=== PATIENT | female | born 1960 | race Caucasian/White ===

== ENCOUNTER 2017-09-12 08:29 | Emergency (ER) | payer BC ==
--- NOTE | 2017-09-12 08:35 | XRAY ---
Indication: Cough. Laryngitis. History mini maze procedure 2014. Comparison: September 10, 2014. PA/lateral chest again hyperinflated and clear. Heart is not enlarged. New cardiac metallic clips from known surgery. Vascularity normal. Bony thorax intact. Impression: Nonacute hyperinflated chest.
[2017-09-12] MEDS ORDERED: Sodium Chloride 0.9% 1000 ML 1,000 ML ONE (08:51)
--- NOTE | 2017-09-12 08:53 | ERPHSYRPT ---
- History of Present Illness Time Seen by Provider: 09/12/17 08:48 Source: patient Exam Limitations: no limitations Physician History: 56-year-old white female with history of COPD coronary artery disease, atrial fibrillation with mini maze Arrives with complaint of a cough shortness of breath feels weak symptoms for a week. Patient was seen by Dr. Cabello 2 days ago given an injection placed on antibiotics (patient not sure what antibiotic she was on) Patient arrived at x-ray today and noticed to be a short of breath so brought to the emergency room. Patient denies pain denies fever states her cough is nonproductive no vomiting no diarrhea, Patient states she feels weak, Past medical history COPD, atrial fibrillation. Past surgical history includes hysterectomy mini maze for atrial fibrillation. Social history patient denies tobacco alcohol or illicit drug use (patient is a former smoker) Timing/Duration: week(s) (one week worse past 2 days) Modifying Factors: Improves With: nothing Associated Symptoms: shortness of breath, cough, malaise, weakness, No nausea, No vomiting, No abdominal pain, No heartburn, No diaphoresis, No chills, No chest pain, No fever, No headaches, No loss of appetite, No rash, No syncope, No seizure Allergies/Adverse Reactions: Antihistamines - Alkylamine Allergy (Verified 09/12/17 08:50) Home Medications: Aspirin 81 mg PO DAILY 06/22/16 [History] Docusate Sodium 100 mg [Colace 100 MG] 100 mg BID 09/12/17 [History] - Review of Systems Constitutional: Malaise, Weakness, No Chills, No Lethargy, No Night Sweats, No Weight Loss Eyes: No Symptoms, No Discharge, No Eye Pain, No Eye Redness, No Itchy, No Photophobia, No Tearing, No Vision Changes, No Double Vision, No Foreign Body Sensation Ears, Nose, & Throat: No Symptoms, No Ear Pain, No Ear Discharge, No Hearing Changes, No Tinnitus, No Nose Pain, No Nose Congestion, No Nose Discharge, No Sinus Drainage, No Epistaxis, No Mouth Pain, No Mouth Swelling, No Loose Teeth, No Throat Pain, No Throat Swelling, No Hoarse, No Painful Swallowing, No Snoring , No Stridor Respiratory: Cough, Dyspnea, No Cyanosis, No Stridor, No Wheezing Cardiac: No Chest Pain, No Edema, No Syncope Abdominal/Gastrointestinal: No Abdominal Pain, No Nausea, No Vomiting, No Diarrhea Genitourinary Symptoms: No Dysuria Musculoskeletal: No Back Pain, No Neck Pain Skin: No Rash Neurological: No Dizziness, No Focal Weakness, No Sensory Changes Psychological: No Symptoms Endocrine: No Symptoms All Other Systems: Reviewed and Negative - Past Medical History Pertinent Past Medical History: Yes Neurological History: No Pertinent History ENT History: No Pertinent History Cardiac History: Arrhythmia Respiratory History: No Pertinent History Endocrine Medical History: No Pertinent History Musculoskeletal History: No Pertinent History GI Medical History: No Pertinent History History: No Pertinent History Psycho-Social History: No Pertinent History Female Reproductive Disorders: No Pertinent History - Past Surgical History Past Surgical History: Yes Neuro Surgical History: No Pertinent History Cardiac: Other Respiratory: No Pertinent History Gastrointestinal: Appendectomy Genitourinary: No Pertinent History Musculoskeletal: No Pertinent History Female Surgical History: Tubal Ligation Other Surgical History: maze procedure for cardiac arrhthymia - Social History Smoking Status: Former smoker Exposure to second hand smoke: No Drug Use: none - Nursing Vital Signs Nursing Vital Signs: Initial Vital Signs Temperature 98.0 F 09/12/17 08:41 Pulse Rate 85 09/12/17 08:41 Respiratory Rate 18 09/12/17 08:41 Blood Pressure 103/76 09/12/17 08:41 O2 Sat by Pulse Oximetry 100 09/12/17 08:41 Pain Scale Pain Intensity 0 - Physical Exam General Appearance: mild distress, alert, thin (him him the floor for further her wi), other (well-developed white female alert oriented 3 and speaks in a quiet voice frequent cough no acute distress) Eye Exam: PERRL/EOMI, eyes nml inspection Ears, Nose, Throat Exam: normal ENT inspection, TMs normal, pharynx normal, moist mucous membranes Neck Exam: normal inspection, non-tender, supple, full range of motion Respiratory Exam: normal breath sounds, other (frequent cough with deep inspiration) Cardiovascular Exam: regular rate/rhythm, normal heart sounds, normal peripheral pulses Gastrointestinal/Abdomen Exam: soft, normal bowel sounds, No tenderness, No mass Back Exam: normal inspection, normal range of motion, No CVA tenderness, No vertebral tenderness Extremity Exam: normal inspection, normal range of motion, pelvis stable Neurologic Exam: alert, oriented x 3, cooperative, normal mood/affect, nml cerebellar function, nml station & gait, sensation nml, No motor deficits Skin Exam: normal color, warm, dry, No rash Lymphatic Exam: No adenopathy SpO2 Interpretation: normal (100%) Oxygen Delivery: Room Air - Course Nursing assessment & vital signs reviewed: Yes Rhythm Strip: Rate (73 bpm), Normal Sinus Rhythm - Radiology Exams Chest X-ray Interpretation: Discussed w/ radiologist, Other (non acute hyperinflated chest) Ordered Tests: Active Orders 24 hr Category Date Time Status Surface Water Technician STAT Care 09/12/17 08:42 Active EKG-ER Only STAT Care 09/12/17 08:41 Active IV Insertion STAT Care 09/12/17 08:41 Active Orthostatic Vital Signs STAT Care 09/12/17 09:49 Active CHEST 2 VIEWS (PA AND LAT) Routine Exams 09/12/17 08:07 Completed CBC W DIFF Stat Lab 09/12/17 08:53 Completed CMP Stat Lab 09/12/17 08:53 Completed Lactic Acid Stat Lab 09/12/17 09:25 Results VENOUS BLOOD GAS Stat Lab 09/12/17 09:25 Results Respiratory Nebulizer STAT RT 09/12/17 08:44 Active Medication Summary Generic Name Dose Route Start Last Admin Trade Name Freq PRN Reason Stop Dose Admin Sodium Chloride 1,000 mls @ 100 mls/hr 09/12/17 08:45 09/12/17 08:55 Sodium Chloride 0.9% 1000 Ml IV 10/12/17 08:44 100 mls/hr .Q10H FIFI Administration Discontinued Medications Generic Name Dose Route Start Last Admin Trade Name Freq PRN Reason Stop Dose Admin Albuterol/Ipratropium 3 ml 09/12/17 08:41 09/12/17 09:00 Duoneb 0.5-3 Mg/3 Ml Neb IH 09/12/17 08:42 3 ml STAT ONE Administration Albuterol/Ipratropium Confirm 09/12/17 09:00 Duoneb 0.5-3 Mg/3 Ml Neb Administered 09/12/17 09:01 Dose 3 ml IH .STK-MED ONE Lab/Rad Data: Laboratory Result Diagrams 09/12/17 08:53 09/12/17 08:53 Laboratory Results 01/25/18 01/25/18 01/25/18 Range/Units 09:25 08:53 08:53 WBC 4.5 (4.0-10.5) K/mm3 RBC 4.90 (4.1-5.4) M/mm3 Hgb 15.5 (12.0-16.0) gm/dl Hct 46.6 (35-47) % MCV 95.1 (78-100) fl MCH 31.6 (26-32) pg MCHC 33.3 (32-36) g/dl RDW 11.8 (11.5-14.0) % Plt Count 147 L (150-450) K/mm3 MPV 9.9 H (6-9.5) fl Gran % 60.7 (36.0-66.0) % Lymphocytes % 28.7 (24.0-44.0) % Monocytes % 10.2 (0.0-12.0) % Eosinophils % 0.2 (0.00-5.0) % Basophils % 0.2 (0.0-0.4) % Basophils # 0.01 (0-0.4) VBG pH 7.47 H (7.32-7.42) VBG pCO2 at Pat Temp 37 L (42-55) mm/Hg VBG pO2 at Pat Temp 35 (25-40) mm/Hg VBG HCO3 26.9 (22-28) meq/L VBG O2 Sat ([place]) 80.8 L (95-100) VBG Base Excess 3.3 H (-2.0-2.0) VBG Hemoglobin 14.9 VBG Carboxyhemoglobin 1.8 (0.0-6.9) % T HGB POC Potassium 3.6 (3.5-5.1) Sodium 139 (136-145) mEq/L Potassium 3.5 (3.5-5.1) mEq/L Chloride 101 (98-107) mEq/L Carbon Dioxide 27.0 (21-32) mEq/L Anion Gap 10.0 (5-15) MEQ/L BUN 8 L (9-20) mg/dL Creatinine 1.01 (0.55-1.30) mg/dl Estimated GFR > 60 ML/MIN Glucose 98 (70-110) MG/DL Lactic Acid 1.9 (0.4-2.0) Calcium 9.4 (8.5-10.1) mg/dL Total Bilirubin 0.60 (0.2-1.0) mg/dL AST 33 (15-37) U/L ALT 33 (12-78) U/L Alkaline Phosphatase 63 (46-116) U/L Serum Total Protein 8.2 (6.4-8.2) gm/dL Albumin 4.1 (3.4-5.0) g/dL - Progress Progress: improved Progress Note: 09/12/17 09:12 This is a 56-year-old white female with history of COPD, atrial fibrillation who has had a mini maze. She arrives with complaint of shortness of breath and feeling weak for a week worse past 2 days. She was seen by Dr. Cabello 2 days ago given an injection given antibiotics. She states she is having lots of coughing she states she is unable to use her Breva secondary to coughing Patient does not appear to be in acute distress she was noted to be short of breath at x-ray and brought to the emergency room. On arrival patient is alert oriented 3 she exhibits a moderate amount of coughing with attempts at deep breathing may be a few wheezes with coughing heart rate is regular. Heart is a sinus rhythm on the monitor 73 bpm patient refuses EKG. Labs including CBC CMP lactate venous gases have been ordered Chest x-ray was done prior to arrival chest x-ray hyperinflated chest no acute disease process noted IV normal saline has been ordered initially at 100 mils per hour this is been increased to a 1 L bolus after chest x-ray is noted. Patient has been given DuoNeb treatment. 09/12/17 09:44 Patient continues to refuse EKG. Monitor shows sinus rhythm 73 bpm patient is looking markedly better after 1 L of normal saline. Patient has inhaler at home she does not want a different one. Patient is on an antibiotic at home. Patient's labs are essentially normal lactate is 1.8. Chest x-ray no acute changes positive COPD. Patient does not want steroids. Will have nurses obtain orthostatic vital signs after normal saline has been infused. Plan to have patient continue her antibiotics prescribed by Dr. Cabello, use her inhalers as prescribed and follow-up with Dr. Cabello. 09/12/17 09:52 Patient's stable blood pressure stable good perfusion to all extremities lungs are clear chest x-ray remarkable for hyperinflation no acute disease process otherwise. Patient refuses EKG patient the with normal sinus rhythm on a monitor normal rate. Lactate within normal limits labs essentially normal. Patient will be discharged. 09/12/17 09:54 - Departure Time of Disposition: 09:47 Departure Disposition: Home Clinical Impression: Cough, Shortness of breath, weakness, Volume depletion COPD (chronic obstructive pulmonary disease) Qualifiers: COPD type: unspecified COPD Qualified Code(s): J44.9 - Chronic obstructive pulmonary disease, unspecified Condition: Fair Critical Care Time: No Referrals: DEB CABELLO [Primary Care Provider] - Instructions: Chronic Obstructive Pulmonary Disease, Exacerbation of COPD (DC) Additional Instructions: Return home. Plenty of fluids. Use your inhalers as prescribed by your family doctor. Take your antibiotics which were prescribed to use 2 days ago by your family doctor. Follow-up with your family doctor. Return for acute distress or for severe symptoms.
[2017-09-12] MEDS: Sodium Chloride 0.9% 1000 ML 1,000 ML IV SCH (08:55)
[2017-09-12] MEDS: DUONEB 0.5-3 MG/3 ml Neb IH ONE (09:00)
[2017-09-12] MEDS ORDERED: DUONEB 0.5-3 MG/3 ml Neb IH ONE (09:00)
[2017-09-12 09:01] LABS: BASOPHIL % 0.2 % (0.0-0.4); Basophil (Absolute #) 0.01 (0-0.4); Eosinophil % 0.2 % (0.00-5.0); Eosinophil (Absolute #) 0.01 (0-0.5); Granulocyte Absolute (ANC) 2.75 (1.4-6.9); Granulocytes % 60.7 % (36.0-66.0); Hematocrit 46.6 % (35-47); Hemoglobin 15.5 gm/dl (12.0-16.0); Lymphocytes % 28.7 % (24.0-44.0); Mean Cell Volume 95.1 fl (78-100); Mean Corpuscular Hemoglobin 31.6 pg (26-32); Mean Corpuscular Hgb Concent. 33.3 g/dl (32-36); Mean Platelet Volume 9.9 fl (6-9.5); Monocyte (Absolute #) 0.46 (0.0-1.3); Monocytes % 10.2 % (0.0-12.0); Platelet Count 147 K/mm3 (150-450); Red Cell Distribution Width 11.8 % (11.5-14.0); White Blood Count 4.5 K/mm3 (4.0-10.5)
[2017-09-12 09:22] LABS: ALBUMIN 4.1 g/dL (3.4-5.0); ALKALINE PHOSPHATASE 63 U/L (46-116); BLOOD UREA NITROGEN 8 mg/dL (9-20); Calcium 9.4 mg/dL (8.5-10.1); Creatinine 1 1.01 mg/dl (0.55-1.30); EST GLOMERULAR FILTRATION RATE > 60 ML/MIN; Glucose 98 MG/DL (70-110); SGOT/AST 33 U/L (15-37); SGPT/ALT 33 U/L (12-78); Total Protein 8.2 gm/dL (6.4-8.2)
[2017-09-12 09:32] LABS: Lactic Acid 1.9 (0.4-2.0); VBG BASE EXCESS 3.3 (-2.0-2.0); VBG CARBOXYHEMOGLOBIN 1.8 % T HGB (0.0-6.9); VBG HCO3- 26.9 meq/L (22-28); VBG HEMOGLOBIN 14.9; VBG O2 SATURATION 80.8 (95-100); VBG PCO2 37 mm/Hg (42-55); VBG PO2 35 mm/Hg (25-40); VBG POTASSIUM 3.6 (3.5-5.1); VBG pH 7.47 (7.32-7.42)
[2017-09-12 09:35] LABS: CHLORIDE 101 mEq/L (98-107); Potassium 3.5 mEq/L (3.5-5.1); SODIUM 139 mEq/L (136-145)
[2017-09-12 10:16] VITALS: BP 111/61; PULSE 73; O2SAT 100
== END 2017-09-12 10:20 | disposition home or self-care (01) ==
LOC: ED 08:29 → EDSTATUS 08:29 → ED 10:20
DX: R05 Cough (principal); R06.02 Shortness of breath; R53.1 Weakness; E86.9 Volume depletion, unspecified; J44.9 Chronic obstructive pulmonary disease, unspecified; I48.91 Unspecified atrial fibrillation; I25.10 Atherosclerotic heart disease of native coronary artery without angina pectoris
CPT/HCPCS: 36000; 36415; 71046; 80053; 82805; 83605; 85025; 93041; 94640; 96360; 99284; A9270-GY

== ENCOUNTER 2021-06-06 11:28 | Emergency (ER) | payer BC ==
[2021-06-06] MEDS ORDERED: DECADRON 10MG INJ. IV ONE (12:04)
[2021-06-06 12:10] LABS: BASOPHIL % 0.1 % (0.0-0.4); Basophil (Absolute #) 0.01 (0-0.4); Eosinophil % 0.7 % (0.00-5.0); Eosinophil (Absolute #) 0.05 (0-0.5); Hematocrit 45.8 % (35-47); Hemoglobin 15.1 gm/dl (12.0-16.0); Lymphocyte (Absolute #) 1.01 (1.0-4.6); Lymphocytes % 14.7 % (24.0-44.0); Mean Cell Volume 94.4 fl (78-100); Mean Corpuscular Hemoglobin 31.1 pg (26-32); Mean Platelet Volume 9.6 fl (7.5-11.0); Monocyte (Absolute #) 0.48 (0.0-1.3); Neutrophil % 77.5 % (36.0-66.0); Platelet Count 274 K/mm3 (150-450); Red Blood Count 4.85 M/mm3 (4.1-5.4); Red Cell Distribution Width 11.9 % (11.5-14.0); White Blood Count 6.9 K/mm3 (4.0-10.5)
[2021-06-06] MEDS ORDERED: DECADRON 10MG INJ. ONE (12:20)
--- NOTE | 2021-06-06 12:24 | XRAY ---
Indication: Short of breath. Positive Covid 19. Comparison: May 31, 2021. Portable chest demonstrates new bilateral hazy patchy airspace disease greatest in lower lungs. No consolidation/large effusion. Heart not enlarged again with cardiac metallic clip.
[2021-06-06 12:34] VITALS: BP 114/68; PULSE 80
[2021-06-06 12:35] LABS: ALBUMIN 4.1 g/dL (3.5-5.0); ALKALINE PHOSPHATASE 70 U/L (38-126); ANION GAP 13.5 MEQ/L (5-15); BLOOD UREA NITROGEN 10 mg/dL (7-17); CHLORIDE 99 mmol/L (98-107); Calcium 9.7 mg/dL (8.4-10.2); Carbon Dioxide 31 mmol/L (22-30); Creatinine 1 0.55 mg/dL (0.52-1.04); EST GLOMERULAR FILTRATION RATE > 60.0 ML/MIN; Glucose 92 mg/dL (74-106); MAGNESIUM 2.3 mg/dL (1.6-2.3); NT PRO BNP 434 pg/mL (0-900); Potassium 3.9 mmol/L (3.5-5.1); SGOT/AST 25 U/L (14-36); SGPT/ALT 17 U/L (0-35); SODIUM 139 mmol/L (137-145); Total Protein 7.6 g/dL (6.3-8.2)
[2021-06-06 13:04] VITALS: O2SAT 96
--- NOTE | 2021-06-06 13:10 | ERPHSYRPT ---
- History of Present Illness Time Seen by Provider: 06/06/21 12:03 Source: patient Exam Limitations: no limitations Patient Subjective Stated Complaint: Patient c/o weakness, non-productive cough, SOB. States she was tested for COVID-19 on 05/31/2021 on the [facility] and received her results today. She states she is Positive for COVID-19. Patient indicates that the health department instructed her to come to the ER for evaluation and treatment. Triage Nursing Assessment: Patient ambulated into ED with a slow, steady gait. Patient is alert and oriented and able to answer questions appropriately. No SOB noted. Resps are non-labored. Lung bases are diminished. An occassional, non- productive cough is noted. 02 sats ranging from 99-100% on room air during assessment. Apical heart rate is normal. Skin warm, dry, normal skin tone. Physician History: 60 years old female with a history of COPD presented in ER with 8-day history of cough congestion, body aches, subjective feeling of fever and chills and some shortness of breath and chest pain at times. Patient has been seen outpatient, received Levaquin and prednisone and has been using inhaler and her COVID-19 test came back positive today. She was advised by health department to be seen in the ER for further evaluation. Patient reports shortness of breath with activity along with generalized weakness fatigue and tiredness with no energy to do her routine activities. Denies any chest pain but does have a nonproductive cough because of coughing has some soreness in the chest at times. Patient was vaccinated against COVID-19. Currently patient is not tachypneic or tachycardic and oxygen saturation around 99% on room air. Timing/Duration: day(s) (8), gradual onset, worse Severity: moderate Modifying Factors: Improves With: rest. Worsens With: movement Associated Symptoms: shortness of breath, cough, chills, chest pain, headaches, malaise, weakness Allergies/Adverse Reactions: Antihistamines - Alkylamine Allergy (Verified 06/06/21 11:55) Home Medications: Albuterol Sulfate [Albuterol Sulfate Hfa] 2 puff PO QID 06/06/21 [History] Fluticasone/Umeclidin/Vilanter [Trelegy Ellipta 100-62.5-25] 1 puff PO DAILY 06/06/21 [History] Hx Tetanus, Diphtheria Vaccination/Date Given: Yes Hx Influenza Vaccination/Date Given: No Hx Pneumococcal Vaccination/Date Given: No Immunizations Up to Date: Yes Travel Risk - International Travel Have you traveled outside of the country in past 3 weeks: No - Coronavirus Screening Are you exhibiting any of the following symptoms?: Yes Symptoms: Cough: New Onset, Shortness of Breath - Vaccine Status Have you recieved a Covid-19 vaccination: Yes Environmental Services Assistant: [employer] - Vaccination Dates Date of 2cond Vaccination (if applicable): AUGUST 2020 - Review of Systems Constitutional: Fever, Chills, Fatigue, Weakness Eyes: No Symptoms Ears, Nose, & Throat: Nose Congestion Respiratory: Cough, Dyspnea, Wheezing Cardiac: No Symptoms Abdominal/Gastrointestinal: No Symptoms Genitourinary Symptoms: No Symptoms Musculoskeletal: Myalgias Skin: No Symptoms Neurological: Headache Psychological: Anxiety Endocrine: No Symptoms Hematologic/Lymphatic: No Symptoms Immunological/Allergic: No Symptoms - Past Medical History Pertinent Past Medical History: Yes Neurological History: Migraines ENT History: No Pertinent History Cardiac History: Arrhythmia Respiratory History: COPD Endocrine Medical History: No Pertinent History Musculoskeletal History: Fibromyalgia, Osteoarthritis, Osteoporosis GI Medical History: No Pertinent History History: No Pertinent History Psycho-Social History: No Pertinent History Female Reproductive Disorders: No Pertinent History Other Medical History: Mini-maze of the heart to correct A-fib in 2014 - Past Surgical History Past Surgical History: Yes Neuro Surgical History: No Pertinent History Cardiac: Other Respiratory: No Pertinent History Gastrointestinal: No Pertinent History Genitourinary: No Pertinent History Musculoskeletal: No Pertinent History Female Surgical History: Hysterectomy, Tubal Ligation Other Surgical History: maze procedure for cardiac arrhthymia in 2014 - Social History Smoking Status: Former smoker Exposure to second hand smoke: No Drug Use: none Patient Lives Alone: No - Nursing Vital Signs Nursing Vital Signs: Initial Vital Signs Temperature 97 F 06/06/21 11:29 Pulse Rate 90 06/06/21 11:29 Respiratory Rate 26 H 06/06/21 11:29 Blood Pressure 112/70 06/06/21 11:29 O2 Sat by Pulse Oximetry 100 06/06/21 11:29 Pain Scale Pain Intensity 0 - Physical Exam General Appearance: no apparent distress, alert, anxiety Eye Exam: PERRL/EOMI, eyes nml inspection Ears, Nose, Throat Exam: normal ENT inspection, TMs normal, pharyngeal erythema Neck Exam: normal inspection, non-tender, supple, full range of motion Respiratory Exam: diminished breath sounds, rhonchi, No respiratory distress, No accessory muscle use Cardiovascular Exam: regular rate/rhythm, normal heart sounds Gastrointestinal/Abdomen Exam: soft, normal bowel sounds, No tenderness Back Exam: normal inspection, normal range of motion Extremity Exam: normal inspection, normal range of motion, pelvis stable Neurologic Exam: alert, oriented x 3, cooperative Skin Exam: normal color SpO2 Interpretation: normal SpO2: 96 O2 Delivery: Room Air - Course EKG Interpreted by Me: RATE (81), Sinus Rhythm, NORMAL AXIS, NORMAL INTERVALS, NORMAL QRS Ordered Tests: Active Orders 24 hr Category Date Time Status Mechanical Engineering Professor STAT Care 06/06/21 12:04 Active EKG-ER Only STAT Care 06/06/21 12:03 Active IV Insertion STAT Care 06/06/21 12:03 Active CHEST 1 VIEW (PORTABLE) Stat Exams 06/06/21 12:04 Completed BLOOD CULTURE Stat Lab 06/06/21 12:35 Received CBC W DIFF Stat Lab 06/06/21 12:03 Completed CMP Stat Lab 06/06/21 12:00 Completed Lactic Acid Stat Lab 06/06/21 12:20 Completed MAGNESIUM Stat Lab 06/06/21 12:00 Completed Manual Differential NC Stat Lab 06/06/21 12:03 Completed NT PRO BNP Stat Lab 06/06/21 12:00 Completed TROPONIN Q3H Lab 06/06/21 12:15 Completed TROPONIN Q3H Lab 06/06/21 15:15 Ordered TROPONIN Q3H Lab 06/06/21 18:15 Ordered TROPONIN Q3H Lab 06/06/21 21:15 Ordered TROPONIN Q3H Lab 06/07/21 00:15 Ordered Medication Summary Discontinued Medications Generic Name Dose Route Start Last Admin Trade Name Freq PRN Reason Stop Dose Admin Dexamethasone Sodium Phosphate 6 mg 06/06/21 12:04 06/06/21 12:21 Dexamethasone Sod Phosphate 10 Mg/Ml IV 06/06/21 12:05 6 mg STAT ONE Administration Lab/Rad Data: Laboratory Result Diagrams 06/06/21 12:03 06/06/21 12:00 Laboratory Results 06/06/21 06/06/21 06/06/21 Range/Units 12:20 12:15 12:03 WBC 6.9 (4.0-10.5) K/mm3 RBC 4.85 (4.1-5.4) M/mm3 Hgb 15.1 (12.0-16.0) gm/dl Hct 45.8 (35-47) % MCV 94.4 (78-100) fl MCH 31.1 (26-32) pg MCHC 33.0 (32-36) g/dl RDW 11.9 (11.5-14.0) % Plt Count 274 (150-450) K/mm3 MPV 9.6 (7.5-11.0) fl Gran % 77.5 H (36.0-66.0) % Eos # (Auto) 0.05 (0-0.5) Absolute Lymphs (auto) 1.01 (1.0-4.6) Absolute Monos (auto) 0.48 (0.0-1.3) Lymphocytes % 14.7 L (24.0-44.0) % Monocytes % 7.0 (0.0-12.0) % Eosinophils % 0.7 (0.00-5.0) % Basophils % 0.1 (0.0-0.4) % Absolute Granulocytes 5.30 (1.4-6.9) Basophils # 0.01 (0-0.4) Sodium (137-145) mmol/L Potassium (3.5-5.1) mmol/L Chloride (98-107) mmol/L Carbon Dioxide (22-30) mmol/L Anion Gap (5-15) MEQ/L BUN (7-17) mg/dL Creatinine (0.52-1.04) mg/dL Estimated GFR ML/MIN Glucose (74-106) mg/dL Lactic Acid 1.8 (0.4-2.0) Calcium (8.4-10.2) mg/dL Magnesium (1.6-2.3) mg/dL Total Bilirubin (0.2-1.3) mg/dL AST (14-36) U/L ALT (0-35) U/L Alkaline Phosphatase (38-126) U/L Troponin I < 0.012 (0.000-0.034) ng/mL NT-Pro-B Natriuret Pep (0-900) pg/mL Serum Total Protein (6.3-8.2) g/dL Albumin (3.5-5.0) g/dL 06/06/21 Range/Units 12:00 WBC (4.0-10.5) K/mm3 RBC (4.1-5.4) M/mm3 Hgb (12.0-16.0) gm/dl Hct (35-47) % MCV (78-100) fl MCH (26-32) pg MCHC (32-36) g/dl RDW (11.5-14.0) % Plt Count (150-450) K/mm3 MPV (7.5-11.0) fl Gran % (36.0-66.0) % Eos # (Auto) (0-0.5) Absolute Lymphs (auto) (1.0-4.6) Absolute Monos (auto) (0.0-1.3) Lymphocytes % (24.0-44.0) % Monocytes % (0.0-12.0) % Eosinophils % (0.00-5.0) % Basophils % (0.0-0.4) % Absolute Granulocytes (1.4-6.9) Basophils # (0-0.4) Sodium 139 (137-145) mmol/L Potassium 3.9 (3.5-5.1) mmol/L Chloride 99 (98-107) mmol/L Carbon Dioxide 31 H (22-30) mmol/L Anion Gap 13.5 (5-15) MEQ/L BUN 10 (7-17) mg/dL Creatinine 0.55 (0.52-1.04) mg/dL Estimated GFR > 60.0 ML/MIN Glucose 92 (74-106) mg/dL Lactic Acid (0.4-2.0) Calcium 9.7 (8.4-10.2) mg/dL Magnesium 2.3 (1.6-2.3) mg/dL Total Bilirubin 0.60 (0.2-1.3) mg/dL AST 25 (14-36) U/L ALT 17 (0-35) U/L Alkaline Phosphatase 70 (38-126) U/L Troponin I (0.000-0.034) ng/mL NT-Pro-B Natriuret Pep 434 (0-900) pg/mL Serum Total Protein 7.6 (6.3-8.2) g/dL Albumin 4.1 (3.5-5.0) g/dL - Progress Progress: improved, re-examined Progress Note: 06/06/21 13:09 Patient has a positive COVID-19 despite having vaccinations. She is maintaining her oxygen saturation very well above 95% on room air. Chest x-ray did show bilateral airspace disease consistent with Covid pneumonia. Not in any distress. Lab work grossly unremarkable including troponins. EKG normal sinus rhythm. I would give her a short course of steroid and recommended continue with inhaler/nebulizer at home. Outpatient follow-up recommended. Do not think she needs to be admitted and is stable for discharge with outpatient follow-up. Discussed signs symptoms of worsening needing return to ER which he seems understanding. Counseled pt/family regarding: lab results, diagnosis, need for follow-up, rad results - Departure Departure Disposition: Home Clinical Impression: Pneumonia due to COVID-19 virus Condition: Stable Critical Care Time: No Referrals: DOCTOR,NO FAMILY [Primary Care Provider] - DEB SMITH [ACTIVE STAFF] - (Call tomorrow for reevaluation.) Instructions: Pneumonia, Adult (DC), Coronavirus Disease 2019 (COVID-19) (DC) Additional Instructions: Follow contact/droplet precautions. Continue with your inhaler and nebulizer as recommended. Follow-up with primary care for reevaluation. Return to ER for worsening cough/shortness of breath or chest pain/persistent fever etc. Prescriptions: Dexamethasone [Decadron] 6 mg PO DAILY #5 tablet
[2021-06-06 14:46] LABS: Lymphocytes 11 % (24-44); Monocyte 2 % (0.0-12.0); Neutrophils 87 % (36.0-66.0); Total Cells Counted 100
[2021-06-06 14:48] LABS: Platelet Estimate NORMAL (NORMAL)
== END 2021-06-06 13:29 | disposition home or self-care (01) ==
LOC: ED 11:28
DX: U07.1 COVID-19 (principal); J12.89 Other viral pneumonia
CPT/HCPCS: 36000; 36415; 71045; 80053; 83605; 83735; 83880; 84484; 85025; 87040; 93005; 93041; 96374; 99284; J1100